=== PATIENT | female | born 1935 | race Two or more races ===

== ENCOUNTER 2024-09-28 11:19 | Inpatient (IN) | payer MEDICARE, OTHER ==
[~2024-09-28] VITALS: Ht 167.6 cm; Wt 84.5 kg
[2024-09-28 12:00] LABS: EOSINOPHILS # (AUTO) 0.2 K/uL (0.0-0.7); EOSINOPHILS % (AUTO) 1.5 % (0.0-7.0); HEMATOCRIT 29.3 % (31.2-41.9); LYMPHOCYTES # (AUTO) 1.7 K/uL (0.8-4.8); LYMPHOCYTES % (AUTO) 16.3 % (20.5-51.5); MEAN CORPUSCULAR HEMOGLOBIN 32.3 uug (24.7-32.8); MEAN CORPUSCULAR HGB CONC 34 g/dL (32.3-35.6); MONOCYTES # (AUTO) 1.2 K/uL (0.1-1.30); MONOCYTES % (AUTO) 11.9 % (0.0-11.0); NEUTROPHILS # (AUTO) 7.4 K/uL (1.8-8.9); NEUTROPHILS % (AUTO) 70.3 % (38.5-71.5); PLATELET COUNT (AUTO) 169 K/uL (179-408); RED BLOOD CELL COUNT(AUTO) 3.08 MIL/uL (3.63-4.92); RED CELL DISTRIBUTION WIDTH 14.8 % (12.3-17.7); WHITE BLOOD COUNT (AUTO) 10.5 K/uL (3.8-11.8)
[2024-09-28 12:04] LABS: DIFFERENTIAL COMMENT 1
[2024-09-28 12:08] LABS: CALCIUM 8.6 mg/dL (8.5-10.1); CARBON DIOXIDE 28 mmol/L (21-32); CHLORIDE 101 mmol/L (98-107); CREATININE 2.1 mg/dL (0.6-1.3); GLUCOSE 266 mg/dL (74-106); POTASSIUM 3.6 mmol/L (3.5-5.1); SODIUM SERUM 135 mmol/L (136-145); UREA NITROGEN, BLOOD 25 mg/dL (7-18)
[2024-09-28 12:18] LABS: LACTIC ACID 2.2 mmol/L (0.4-2.0)
[2024-09-28 12:21] LABS: ALANINE AMINOTRANSFERASE 9 U/L (14-59); ALBUMIN 2.4 g/dL (3.4-5.0); ALKALINE PHOSPHATASE 67 U/L (50-136); ASPARTATE AMINOTRANSFERASE 12 U/L (15-37); BILIRUBIN,DIRECT 0.1 mg/dL (0.0-0.2); BILIRUBIN,TOTAL 0.3 mg/dL (0.2-1.0); NT-PRO BNP 7274 pg/mL (0-125); TOTAL PROTEIN, SERUM 5.9 g/dL (6.4-8.2)
[2024-09-28 12:37] LABS: SITE, VBG RIGHT RADIAL; VBG HCO3 26.3 mmol/L (22.0-29.0); VBG MetHb 0.1 % (0.5-1.5); VBG O2HB 97.3 % (0-79.0); VBG PCO2 39.8 mmHg (38.0-54.0); VBG PH 7.438 (7.320-7.430); VBG PO2 104.8 mmHg (23.0-48.0); VBG TOTAL HEMOGLOBIN 10.9 G/dL (12.0-16.0)
[2024-09-28 13:59] LABS: *BILIRUBIN,URIN NEGATIVE (NEGATIVE); *CLARITY,URINE CLOUDY (CLEAR); *COLOR,URINE YELLOW (YELLOW); *KETONES,URINE NEGATIVE (NEGATIVE); *PROTEIN,URINE 2+ (NEGATIVE); *UROBILINOGEN,URINE 0.2 E.U./dl (NORMAL); LEUKOCYTE ESTERASE ,URINE 3+ (NEGATIVE); NITRITE, URINE NEGATIVE (NEGATIVE); UGLUCOSE TRACE (NEGATIVE)
[2024-09-28 14:02] LABS: *BLOOD, URINE TRACE (NEGATIVE)
[2024-09-28 14:04] LABS: BACTERIA,URINE MANY /HPF (NONE SEEN); SQUAMOUS EPITHELIAL CELL,UR MODERATE /HPF (NONE SEEN); WBC,URINE 50-80 /HPF (0-3)
[2024-09-28] MEDS ORDERED: CEFTRIAXONE /D5W 50ML IVPB **ER PYXIS IV ONE (14:46)
[2024-09-28] MEDS: CEFTRIAXONE 1 G in IV DEXTROSE 5% 50 ML IV ONE (14:49)
[2024-09-28 15:30] VITALS: O2SAT 98
[2024-09-28] MEDS ORDERED: APIX2.5T PO (15:40)
[2024-09-28] MEDS ORDERED: BUPR-96 PO (15:40)
[2024-09-28] MEDS ORDERED: BUSP5TAB3 PO (15:40)
[2024-09-28] MEDS ORDERED: ATOR20TA PO (15:40)
[2024-09-28] MEDS ORDERED: HYDR-4174 TP (15:58)
[2024-09-28] MEDS ORDERED: RIBO1TAB2 PO (15:58)
[2024-09-28] MEDS ORDERED: POLY119P17 PO (15:58)
[2024-09-28] MEDS ORDERED: CARV12.52 PO (15:58)
[2024-09-28] MEDS ORDERED: LEVO137T2 PO (15:58)
[2024-09-28] MEDS ORDERED: VALS160T2 PO (15:58)
[2024-09-28] MEDS ORDERED: LETR2.5T PO (15:58)
[2024-09-28] MEDS ORDERED: INSU100V7 SQ (15:58)
[2024-09-28] MEDS ORDERED: HYDR100T27 PO (15:58)
[2024-09-28] MEDS ORDERED: OMEP40CA21 PO (15:58)
[2024-09-28] MEDS ORDERED: INSU200I SQ (15:58)
[2024-09-28] MEDS ORDERED: CHOL400T28 PO (15:58)
[2024-09-28] MEDS ORDERED: IPRA0.2S48 NEB (15:58)
[2024-09-28] MEDS ORDERED: DICL100G26 TP (15:58)
[2024-09-28] MEDS ORDERED: SODI100010 PO (15:58)
[2024-09-28] MEDS ORDERED: FOLI1TAB94 PO (15:58)
[2024-09-28] MEDS ORDERED: FURO20TA4 PO (15:58)
[2024-09-28] MEDS ORDERED: DULO30CA2 PO (15:58)
[2024-09-28] MEDS ORDERED: MAGNESIUM HYDROXIDE 30 ML LIQUID UDC PO PRN (16:45)
[2024-09-28] MEDS ORDERED: ONDANSETRON 4 MG/2 ML VIAL IV PRN (16:45)
[2024-09-28] MEDS ORDERED: DEXTROSE 50% 50 ML DISP.SYRIN IV PRN (16:45)
[2024-09-28] MEDS ORDERED: HYDROCORTISONE 2.5 % RECTAL CREAM 28.35 GM TUBE RC PRN (17:00)
[2024-09-28] MEDS ORDERED: CARVEDILOL 12.5 MG TABLET PO SCH (17:00)
[2024-09-28 19:00] VITALS: BP 150/61; TEMP 97.5; O2SAT 100
[2024-09-28] MEDS: SODIUM CHLORIDE 1,000 MG TABLET PO SCH (20:40)
[2024-09-28] MEDS: BLOOD SUGAR DIAGNOSTIC 1 EACH STRIP VI SCH (20:41)
[2024-09-28] MEDS: CARVEDILOL 12.5 MG TABLET PO SCH (20:42)
[2024-09-28] MEDS: APIXABAN 2.5 MG TABLET PO SCH (20:42)
[2024-09-28] MEDS: INSULIN REGULAR, HUMAN 300 UNITS/3 ML VIAL SQ PRN (20:42)
[2024-09-28] MEDS: hydrALAZINE HCL 50 MG TABLET PO SCH (20:43)
[2024-09-28 20:51] VITALS: O2SAT 98
[2024-09-28] MEDS: ATORVASTATIN 20 MG TABLET PO SCH (21:00)
[2024-09-29] VITALS (7 sets, daily range): BP systolic 101–184; BP diastolic 54–68; TEMP 98.2–99.5; O2SAT 98–100
[2024-09-29] MEDS: PANTOPRAZOLE SODIUM 40 MG TABLET.DR PO SCH (06:30)
[2024-09-29 07:01] LABS: BASOPHILS % (AUTO) 0.5 % (0.0-2.0); EOSINOPHILS # (AUTO) 0.2 K/uL (0.0-0.7); EOSINOPHILS % (AUTO) 2.1 % (0.0-7.0); HEMATOCRIT 30.8 % (31.2-41.9); HEMOGLOBIN 10.5 g/dL (10.9-14.3); LYMPHOCYTES # (AUTO) 1.1 K/uL (0.8-4.8); LYMPHOCYTES % (AUTO) 14.5 % (20.5-51.5); MEAN CORPUSCULAR HEMOGLOBIN 32.2 uug (24.7-32.8); MEAN CORPUSCULAR HGB CONC 34 g/dL (32.3-35.6); MEAN CORPUSCULAR VOLUME 94.5 fL (75.5-95.3); MONOCYTES # (AUTO) 0.7 K/uL (0.1-1.30); MONOCYTES % (AUTO) 9.8 % (0.0-11.0); NEUTROPHILS # (AUTO) 5.6 K/uL (1.8-8.9); NEUTROPHILS % (AUTO) 73.1 % (38.5-71.5); PLATELET COUNT (AUTO) 162 K/uL (179-408); RED BLOOD CELL COUNT(AUTO) 3.26 MIL/uL (3.63-4.92); RED CELL DISTRIBUTION WIDTH 14.4 % (12.3-17.7); WHITE BLOOD COUNT (AUTO) 7.6 K/uL (3.8-11.8)
[2024-09-29 07:06] LABS: DIFFERENTIAL COMMENT 1
[2024-09-29 07:11] LABS: CALCIUM 8.6 mg/dL (8.5-10.1); CARBON DIOXIDE 28 mmol/L (21-32); CHLORIDE 99 mmol/L (98-107); CREATININE 1.5 mg/dL (0.6-1.3); GLUCOSE 193 mg/dL (74-106); MAGNESIUM 1.9 mg/dL (1.8-2.4); PHOSPHOROUS 3.3 mg/dL (2.5-4.9); SODIUM SERUM 137 mmol/L (136-145); UREA NITROGEN, BLOOD 21 mg/dL (7-18)
[2024-09-29] MEDS: INSULIN REGULAR, HUMAN 1000 UNIT/10 ML VIAL SQ PRN (07:38)
[2024-09-29] MEDS: ACETAMINOPHEN 325 MG TABLET PO PRN (07:48)
[2024-09-29] MEDS: DULOXETINE 30 MG CAPSULE.DR PO SCH (08:27)
[2024-09-29] MEDS: busPIRone 5 MG TABLET PO SCH (08:27)
[2024-09-29] MEDS: LEVOTHYROXINE SODIUM 137 MCG TABLET PO SCH (08:27)
[2024-09-29] MEDS: buPROPion XL 150 MG TAB.SR.24H PO SCH (08:27)
[2024-09-29] MEDS: FUROSEMIDE 20 MG TABLET PO SCH (08:27)
[2024-09-29] MEDS: FOLIC ACID 1 MG TABLET PO SCH (08:27)
[2024-09-29] MEDS ORDERED: LETROZOLE PO SCH (09:00)
[2024-09-29] MEDS ORDERED: LETROZOLE 2.5 MG PO SCH (09:00)
[2024-09-29] MEDS ORDERED: [UNRECOGNIZED DRUG - OTHER] PO SCH (09:00)
[2024-09-29] MEDS ORDERED: CEFTRIAXONE 1 G in IV DEXTROSE 5% 50 ML IV SCH (09:00)
[2024-09-29] MEDS ORDERED: RIBOCICLIB SUCCINATE PO SCH (09:00)
[2024-09-29] MEDS ORDERED: Medication Not On Formulary EA (Omeprazole 40 MG) PO SCH (09:00)
[2024-09-29] MEDS: CEFTRIAXONE 1 G in IV DEXTROSE 5% 50 ML IV SCH (14:09)
[2024-09-29] MEDS: VALSARTAN 160 MG TABLET PO SCH (14:10)
[2024-09-29 15:37] LABS: *BILIRUBIN,URIN NEGATIVE (NEGATIVE); *BLOOD, URINE NEGATIVE (NEGATIVE); *CLARITY,URINE CLEAR (CLEAR); *COLOR,URINE YELLOW (YELLOW); *KETONES,URINE NEGATIVE (NEGATIVE); *PROTEIN,URINE 1+ (NEGATIVE); *UROBILINOGEN,URINE 0.2 E.U./dl (NORMAL); LEUKOCYTE ESTERASE ,URINE 1+ (NEGATIVE); NITRITE, URINE NEGATIVE (NEGATIVE); PH,URINE 6.5 (5.0-8.0); UGLUCOSE NEGATIVE (NEGATIVE)
[2024-09-29 15:44] LABS: *CREATININE,URINE 61.5 mg/dL (30-125); *URINE TOTAL PROTEIN RANDOM 52.9 mg/dL (<150/24HR)
[2024-09-29 15:55] LABS: BACTERIA,URINE FEW /HPF (NONE SEEN); RBC,URINE 0-3 /HPF (0-3); SQUAMOUS EPITHELIAL CELL,UR FEW /HPF (NONE SEEN)
[2024-09-29] MEDS: REMEDY ESSENTIAL ZINC PASTE 113 GM TP PRN (16:43)
[2024-09-29] MEDS: KISQALI PO SCH (20:46)
[2024-09-29] MEDS: LETROZOLE 2.5 MG PO SCH (20:46)
[2024-09-30 06:27] VITALS: BP 147/75; TEMP 97.4; O2SAT 94
[2024-09-30 06:50] LABS: BASOPHILS % (AUTO) 0.3 % (0.0-2.0); EOSINOPHILS % (AUTO) 0.5 % (0.0-7.0); HEMATOCRIT 31.4 % (31.2-41.9); HEMOGLOBIN 10.9 g/dL (10.9-14.3); LYMPHOCYTES # (AUTO) 0.9 K/uL (0.8-4.8); MEAN CORPUSCULAR HEMOGLOBIN 32.2 uug (24.7-32.8); MEAN CORPUSCULAR HGB CONC 35 g/dL (32.3-35.6); MEAN CORPUSCULAR VOLUME 93.2 fL (75.5-95.3); MONOCYTES % (AUTO) 11.1 % (0.0-11.0); NEUTROPHILS # (AUTO) 6.8 K/uL (1.8-8.9); NEUTROPHILS % (AUTO) 78.1 % (38.5-71.5); PLATELET COUNT (AUTO) 174 K/uL (179-408); RED BLOOD CELL COUNT(AUTO) 3.37 MIL/uL (3.63-4.92); RED CELL DISTRIBUTION WIDTH 14.4 % (12.3-17.7); WHITE BLOOD COUNT (AUTO) 8.7 K/uL (3.8-11.8)
[2024-09-30 07:01] LABS: DIFFERENTIAL COMMENT 1
[2024-09-30 07:10] LABS: ALANINE AMINOTRANSFERASE 13 U/L (14-59); ALBUMIN 2.6 g/dL (3.4-5.0); ALKALINE PHOSPHATASE 80 U/L (50-136); ASPARTATE AMINOTRANSFERASE 11 U/L (15-37); BILIRUBIN,TOTAL 0.4 mg/dL (0.2-1.0); CALCIUM 9.5 mg/dL (8.5-10.1); CARBON DIOXIDE 27 mmol/L (21-32); CHLORIDE 99 mmol/L (98-107); CREATINE KINASE, TOTAL 17 U/L (26-192); CREATININE 1.3 mg/dL (0.6-1.3); GLUCOSE 251 mg/dL (74-106); MAGNESIUM 1.7 mg/dL (1.8-2.4); PHOSPHOROUS 4.1 mg/dL (2.5-4.9); POTASSIUM 3.6 mmol/L (3.5-5.1); SODIUM SERUM 135 mmol/L (136-145); TOTAL PROTEIN, SERUM 6.9 g/dL (6.4-8.2); UREA NITROGEN, BLOOD 17 mg/dL (7-18)
[2024-09-30] MEDS: MAGNESIUM OXIDE 400 MG TABLET PO ONE (09:52)
[2024-09-30 10:00] VITALS: O2SAT 98
[2024-09-30 11:36] VITALS: BP 123/42; TEMP 99; O2SAT 98
[2024-09-30 16:00] VITALS: BP 96/48; TEMP 98.4; O2SAT 98
[2024-09-30 17:25] VITALS: BP 100/52; TEMP 98.7; O2SAT 99
[2024-09-30 19:15] VITALS: BP 154/54; TEMP 98.6; O2SAT 97
[2024-09-30] MEDS: INSULIN GLARGINE,HUM 300 UNITS/3 ML CARTRIDGE SQ SCH (21:27)
[2024-10-01 06:54] LABS: BASOPHILS % (AUTO) 0.7 % (0.0-2.0); EOSINOPHILS # (AUTO) 0.1 K/uL (0.0-0.7); EOSINOPHILS % (AUTO) 1.6 % (0.0-7.0); HEMATOCRIT 30.2 % (31.2-41.9); HEMOGLOBIN 10.4 g/dL (10.9-14.3); LYMPHOCYTES # (AUTO) 1.5 K/uL (0.8-4.8); LYMPHOCYTES % (AUTO) 23.4 % (20.5-51.5); MEAN CORPUSCULAR HEMOGLOBIN 32.2 uug (24.7-32.8); MEAN CORPUSCULAR HGB CONC 35 g/dL (32.3-35.6); MEAN CORPUSCULAR VOLUME 93.3 fL (75.5-95.3); MONOCYTES # (AUTO) 1.3 K/uL (0.1-1.30); MONOCYTES % (AUTO) 19.7 % (0.0-11.0); NEUTROPHILS # (AUTO) 3.5 K/uL (1.8-8.9); NEUTROPHILS % (AUTO) 54.6 % (38.5-71.5); PLATELET COUNT (AUTO) 170 K/uL (179-408); RED BLOOD CELL COUNT(AUTO) 3.23 MIL/uL (3.63-4.92); RED CELL DISTRIBUTION WIDTH 14.6 % (12.3-17.7); WHITE BLOOD COUNT (AUTO) 6.4 K/uL (3.8-11.8)
[2024-10-01 06:55] VITALS: BP 122/59; TEMP 97.9; O2SAT 98
[2024-10-01 07:05] LABS: CALCIUM 9.4 mg/dL (8.5-10.1); CARBON DIOXIDE 29 mmol/L (21-32); CHLORIDE 100 mmol/L (98-107); CREATININE 1.5 mg/dL (0.6-1.3); GLUCOSE 198 mg/dL (74-106); MAGNESIUM 1.9 mg/dL (1.8-2.4); POTASSIUM 3.5 mmol/L (3.5-5.1); SODIUM SERUM 138 mmol/L (136-145); UREA NITROGEN, BLOOD 20 mg/dL (7-18)
[2024-10-01 07:16] LABS: DIFFERENTIAL COMMENT 1
[2024-10-01 09:15] VITALS: O2SAT 98
[2024-10-01] MEDS: ALBUTEROL SULFATE 2.5 MG/3 ML NEBU NEB PRN (09:18)
[2024-10-01] MEDS: IPRATROPIUM BROMIDE 0.5 MG/2.5 ML NEBU NEB PRN (09:18)
[2024-10-01 09:25] VITALS: O2SAT 99
[2024-10-01 09:41] LABS: EOSINOPHILS % (MANUAL) 2 % (0-8); LYMPHOCYTES % (MANUAL) 34 % (20-40); MONOCYTES % (MANUAL) 9 % (2-10); NEUTROPHILS % (MANUAL) 55 % (42-75); PLATELET ESTIMATE DECREASED
[2024-10-01] MEDS ORDERED: CEPH500C2 PO (10:28)
[2024-10-01] MEDS ORDERED: ALBU2.5V7 NEB (10:28)
[2024-10-01] MEDS: CEphaleXIN 500 MG CAPSULE PO SCH (10:30)
[2024-10-01 11:38] VITALS: BP 113/50; TEMP 98.3; O2SAT 98
[2024-10-01 15:38] VITALS: BP 141/55; TEMP 98.1; O2SAT 94
[2024-10-02 06:10] LABS: PTH, INTACT 70 pg/mL (15-65)
== END 2024-10-01 15:50 | disposition home or self-care (01) | DRG 689 ==
LOC: ER 11:19 → MEDSURG3 15:00
PROVIDERS: ADMIT Nurse Practitioner Family; ATTEND Nurse Practitioner Family
DX: N39.0 Urinary tract infection, site not specified (principal); N17.0 Acute kidney failure with tubular necrosis; E87.20 Acidosis, unspecified; E44.1 Mild protein-calorie malnutrition; E87.1 Hypo-osmolality and hyponatremia; F03.93 Unspecified dementia, unspecified severity, with mood disturbance; F03.94 Unspecified dementia, unspecified severity, with anxiety; Z91.148 Patient's other noncompliance with medication regimen for other reason; E88.09 Other disorders of plasma-protein metabolism, not elsewhere classified; E11.65 Type 2 diabetes mellitus with hyperglycemia; E78.5 Hyperlipidemia, unspecified; T38.3X6A Underdosing of insulin and oral hypoglycemic [antidiabetic] drugs, initial encounter; Z68.30 Body mass index [BMI] 30.0-30.9, adult; E66.9 Obesity, unspecified; Z79.01 Long term (current) use of anticoagulants; Z79.4 Long term (current) use of insulin; Z79.899 Other long term (current) drug therapy; I11.0 Hypertensive heart disease with heart failure; I50.9 Heart failure, unspecified; I48.91 Unspecified atrial fibrillation; F41.8 Other specified anxiety disorders; G47.30 Sleep apnea, unspecified; D64.9 Anemia, unspecified
CPT/HCPCS: 36415; 36600; 71045; 82803; 83605; 83735; 83970; 84100; 84155; 84165; 84300; 85025; 85730; 87040; 87086; 93005; 93307; 94664; 94760; A4606; A4663; C1758; G0378; J0696; J1815; J3590